=== PATIENT | male | born 1955 | race Two or more races ===

== ENCOUNTER 2020-12-27 11:48 | Outpatient (CLI) | payer OTHER | END 2020-12-27 11:56 | disposition home or self-care (01) | LOC: RAD 11:48 | PROVIDERS: ATTEND General Practice | DX: R07.89 Other chest pain (principal); I11.9 Hypertensive heart disease without heart failure ==

== ENCOUNTER 2022-05-28 09:45 | Outpatient (CLI) | payer OTHER | END 2022-05-28 09:56 | disposition home or self-care (01) | LOC: MRI 09:45 | PROVIDERS: ATTEND Orthopaedic Surgery | DX: M16.12 Unilateral primary osteoarthritis, left hip (principal) | CPT/HCPCS: 73721 ==

== ENCOUNTER 2022-05-30 07:10 | Outpatient (CLI) | payer OTHER | END 2022-05-30 07:11 | disposition home or self-care (01) | LOC: NUCLEAR 07:10 | PROVIDERS: ATTEND Internal Medicine | DX: I20.8 Other forms of angina pectoris (principal); I11.9 Hypertensive heart disease without heart failure; E78.2 Mixed hyperlipidemia | CPT/HCPCS: 78452; 93017; A9500; J0153 ==

== ENCOUNTER 2022-10-08 10:30 | Inpatient (IN) | payer OTHER ==
[~2022-10-08] VITALS: Ht 172.7 cm; Wt 93.9 kg
[2022-10-08] MEDS ORDERED: AMLODIPINE-VAL1 EAC3 PO (15:07)
[2022-10-08] MEDS ORDERED: IRBESARTAN-HCT1 EAC1 PO (15:08)
[2022-10-08] MEDS ORDERED: NORVASC5 MG PO (15:09)
[2022-10-14] MEDS ORDERED: SIMVASTATIN10 MG (07:54)
[2022-10-14] MEDS ORDERED: XARELTO10 M1 (07:54)
[2022-10-14] MEDS ORDERED: GLIMEPIRIDE1 M1 (07:54)
[2022-10-14] MEDS ORDERED: IRBESARTAN-HCT1 EAC1 (07:55)
== END 2022-10-16 15:28 | disposition home or self-care (01) | DRG 470 ==
LOC: O/R 10-14 05:55 → SURH 10-14 07:00 → SURG 10-14 11:45
PROVIDERS: ADMIT Orthopaedic Surgery; ATTEND Orthopaedic Surgery
PROC: 0SRB0JZ Replacement of Left Hip Joint with Synthetic Substitute, Open Approach (ICD-10-PCS; principal; 2022-10-14 07:00)
DX: M16.12 Unilateral primary osteoarthritis, left hip (principal); I10 Essential (primary) hypertension

== ENCOUNTER 2023-02-06 07:33 | Emergency (ER) | payer OTHER ==
[~2023-02-06] VITALS: Ht 172.7 cm; Wt 90.7 kg
[~2023-02-06 07:33] MED LIST: AMLODIPINE-VAL1 EAC3 PO; GLIMEPIRIDE1 M1; IRBESARTAN-HCT1 EAC1; IRBESARTAN-HCT1 EAC1 PO; NORVASC5 MG PO; SIMVASTATIN10 MG; XARELTO10 M1
[2023-02-06] MEDS ORDERED: DICLOFENAC SODI75 MG PO (09:15)
== END 2023-02-06 12:34 | disposition home or self-care (01) ==
LOC: ER 07:33
DX: M25.552 Pain in left hip (principal); E11.9 Type 2 diabetes mellitus without complications; Z79.84 Long term (current) use of oral hypoglycemic drugs; Z96.649 Presence of unspecified artificial hip joint
CPT/HCPCS: 96372; 99284; J1885

== ENCOUNTER → 2023-03-03 12:35 | Outpatient (CLI) | payer OTHER | END | disposition home or self-care (01) | LOC: NUCLEAR 12:35 | DX: M81.0 Age-related osteoporosis without current pathological fracture (principal) ==

== ENCOUNTER → 2023-03-03 | Outpatient (CLI) | payer OTHER ==
[~2023-03-03] MED LIST changes: +DICLOFENAC SODI75 MG PO
== END | disposition home or self-care (01) ==
LOC: RAD 13:24
PROVIDERS: ATTEND Orthopaedic Surgery
DX: M17.12 Unilateral primary osteoarthritis, left knee (principal)

== ENCOUNTER → 2023-03-20 | Outpatient (CLI) | payer OTHER | END | disposition home or self-care (01) | LOC: RAD 11:59 | PROVIDERS: ATTEND Orthopaedic Surgery | DX: M25.552 Pain in left hip (principal); Z96.642 Presence of left artificial hip joint ==